=== PATIENT | male | born 1995 | race Two or more races ===

== ENCOUNTER 2016-08-08 10:57 | Emergency (ER) | payer BC ==
[2016-08-08 11:07] VITALS: BP 110/69; PULSE 84; RESP 18; TEMP 97.9; O2SAT 96
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
== END 2016-08-08 11:18 | disposition home or self-care (01) ==
LOC: CED 10:57
DX: S16.1XXA Strain of muscle, fascia and tendon at neck level, initial encounter (principal); Z87.891 Personal history of nicotine dependence; V89.2XXA Person injured in unspecified motor-vehicle accident, traffic, initial encounter; Y92.410 Unspecified street and highway as the place of occurrence of the external cause